=== PATIENT | male | born 1970 | race Hispanic/Latino ===

== ENCOUNTER 2022-07-23 19:19 | Emergency (ER) | payer SELFPAY | END 2022-07-23 21:55 | disposition left against medical advice (07) | LOC: ED 19:19 | DX: R51.9 Headache, unspecified (principal); M54.2 Cervicalgia; Z53.21 Procedure and treatment not carried out due to patient leaving prior to being seen by health care provider ==

== ENCOUNTER 2022-07-24 08:23 | Emergency (ER) | payer SELFPAY ==
[2022-07-24 08:30] VITALS: BP 124/75
== END 2022-07-25 09:50 | disposition left against medical advice (07) ==
LOC: ED 08:23
DX: M54.2 Cervicalgia (principal); Z53.21 Procedure and treatment not carried out due to patient leaving prior to being seen by health care provider